=== PATIENT | female | born 2000 | race Caucasian/White ===

== ENCOUNTER 2021-03-04 21:58 | Emergency (ER) | payer SELFPAY ==
[~2021-03-04] VITALS: Ht 162.6 cm; Wt 58.0 kg
[2021-03-04 22:11] VITALS: BP 124/65
== END 2021-03-04 23:07 | disposition home or self-care (01) ==
LOC: ER 21:59
DX: R07.89 Other chest pain (principal); R06.02 Shortness of breath
CPT/HCPCS: 71045; 99283

== ENCOUNTER 2021-08-07 20:54 | Emergency (ER) | payer SELFPAY ==
[~2021-08-07] VITALS: Ht 160 cm; Wt 57.5 kg
[2021-08-07 21:49] VITALS: BP 140/88
== END 2021-08-07 22:12 | disposition left against medical advice (07) ==
LOC: ER 20:56
DX: R10.9 Unspecified abdominal pain (principal); Z53.21 Procedure and treatment not carried out due to patient leaving prior to being seen by health care provider